=== PATIENT | female | born 1985 | race Caucasian/White ===

== ENCOUNTER 2021-02-25 18:40 | Emergency (ER) | payer OTHER, SELFPAY ==
--- NOTE | ~2021-02-25 | XR_ITS ---
EXAMINATION: XR CHEST CLINICAL INFORMATION: Cough with shortness of breath COMPARISON: 05/29/2018 TECHNIQUE: Frontal view of the chest was obtained. FINDINGS: No significant abnormality is noted involving the heart, lungs, mediastinum, bony thorax or soft tissues. XR/XR chest 1V IMPRESSION: Unremarkable examination.
[2021-02-25 21:16] VITALS: BP 138/96; PULSE 113; RESP 16; TEMP 36.7; O2SAT 95; BMI 52.9
[2021-02-25 21:45] LABS: COVID-19 Test Negative (Negative)
[2021-02-25] MEDS: predniSONE 20 MG TABLET 60 MG PO (22:44)
[2021-02-25] MEDS: Albuterol Sulfate (0.083%) 2.5 MG/3 ML VIAL.NEB INHALE ×2 (22:44→23:18)
--- NOTE | 2021-02-25 22:52 | ED_ITS ---
HPI - URI/Sore Throat General Chief Complaint: Upper Respiratory Symptoms Stated Complaint: Asthma Time Seen by Provider: 02/25/21 22:18 Source: patient Mode of arrival: ambulatory Limitations: no limitations History of Present Illness HPI Narrative: 35 years old female it is here today for shortness of breath. Patient reports that she does have a history of asthma and is on corticosteroids and rescue inhalers. Patient reports that her symptoms started few days ago. Mostly wheezing, some shortness of breath, denies any CP, PND, presyncope or syncope. Patient reports that when she takes her nebulizer treatment she feels well for couple hours and then she starts wheezing again. Patient denies any allergy. No ill contacts. Patient reports that she was vaccine eyes with COVID-19 vaccine Sassor. No fever or chills, no rhinorrhea, no nasal congestion or sinus pain. Related Data Previous Rx's Medication Instructions Recorded albuterol sulfate 90 mcg/actuation 2 inh INHALATION QID PRN #8.5 g 02/25/21 aerosol inhaler prednisone 20 mg tablet 60 mg PO DAILY 5 Days #15 tab 02/25/21 prednisone 20 mg tablet 60 mg PO DAILY 5 Days #15 tab 02/25/21 Allergies Allergy/AdvReac Type Severity Reaction Status Date / Time No Known Allergies Allergy Unverified 03/03/20 19:36 [No Known Allergies*] Review of Systems Review of Systems: Constitutional : No Weight loss, No Fever, No Chills, No Night Sweats, No Fatigue, No Malaise ENT/Mouth : No Hearing loss, No Ear Pain, No Nasal Congestion, No Sinus Pain, No Hoarseness, No sore throat, No Rhinorrhea, No Swallowing Difficulty Eyes: No Eye Pain, No Swelling, No Redness, No Foreign Body, No Discharge, No Vision Changes Cardiovascular : No Chest Pain, SOB, No Dyspnea on Exertion, No Orthopnea, No Edema, No Palpitations Respiratory : No Cough, No Sputum, Wheezing, No Smoke Exposure, No Dyspnea Gastrointestinal : No Nausea, No Vomiting, No Diarrhea, No Constipation, No abdominal Pain, No Hematochezia, No Melena Genitourinary : no irregular bleeding, No Dysuria, No Urinary Frequency, No Hematuria, No Urinary Incontinence, No Urgency, No Flank Pain, No Urinary Flow Changes, No Hesitancy Musculoskeletal : No joint pain, No Myalgias, No Joint Swelling Skin : No Skin Lesions, No rash Neuro : No Weakness, No Numbness, No Paresthesias, No Loss of Consciousness, No Dizziness, No Headache Psych : No Anxiety/Panic, No Depression, No SI/HI/AH/VH, No Social Issues, Heme/Lymph: No Bruising, No Bleeding,No Lymphadenopathy Endocrine : No Polyuria, No Polydipsia, No Temperature Intolerance Yes all other systems are reviewed and are negative PMFSH Social History Social History Advance Directives: No Patient : No Physical Exam Vital Signs: Vital Signs: Last Vital Signs Temp 98.0 F 02/25/21 21:16 Pulse 113 H 02/25/21 23:19 Resp 16 02/25/21 21:16 BP 138/96 H 02/25/21 21:16 Pulse Ox 95 02/25/21 21:16 Body Mass Index 52.9 Const: General: healthy appearing, no acute distress and well developed Nutritional Appearance: well nourished Orientation/consciousness: patient oriented x3 HENMT: Head: Yes normal to inspection, Yes normocephalic and Yes atraumatic Ears: hearing grossly normal bilaterally, external ears normal and TM's normal bilaterally General nose exam: Normal external nose present Face and sinus: Yes normal facial exam Mouth: Normal oral and palatal mucosa present Throat: Yes posterior oropharynx normal Eyes: General: appearance normal, both eyes and all related structures Neck: Neck: Yes normal visual inspection, Yes full ROM and Yes trachea midline Thyroid: Thyroid normal Resp: Effort & Inspection: normal respiratory effort Auscultation: wheezes expiratory wheezes and upper bilaterally Cardio: Rate: regular rate Rhythm: regular rhythm Heart sounds: S1 normal heart sound present and S2 normal heart sound present GI: Inspection: Yes normal to inspection and No distended Palpation (GI): No hepatosplenomegaly present Auscultation: normal bowel sounds Skin: General skin exam: elasticity normal, turgor normal and dry skin Neuro: General: patient oriented x3 Course Course Course Narrative: 35 years old with past medical history of asthma is here today for shortness of breath and wheezing. Patient reports that she has been feeling like this for the last few days. Reports that she had used nebulizer treatment at home and feels well for couple hours and then her symptoms return. Patient denies any cough, subjective fevers, chest pain, shortness of breath, orthopnea. Patient reports that she does have new car make ready mechanic but has not seen him consistently. Reevaluation(s) Reevaluation #1: Respiratory treatment given patient has improvement, however she does have upper inspiratory wheeze. Will order 2nd treatment and will re- evaluate Reevaluation #2: Second treatment helped patient. Lung sounds clear. Will send her home on prednisone for the next 5 days. Patient will follow-up with new car make ready mechanic. Script for rescue inhaler sent. Respiratory therapist gave patient spacer so she can use it. She is agreeable to go home and follow-up with her PCP and new car make ready mechanic. MDM - URI/Sore Throat Lab Data Labs: Lab Results 02/25/21 Range/Units 21:21 COVID-19 (ERICKA) Negative (Negative) COVID-19 Clin Com See Note Imaging Data Chest x-ray: Radiologist's impression: FINDINGS: No significant abnormality is noted involving the heart, lungs, mediastinum, bony thorax or soft tissues. Discharge Plan Discharge Clinical Impression: Viral infection Asthma with status asthmaticus Qualifiers: Asthma severity: mild Asthma persistence: intermittent Qualified Code(s): J45.22 - Mild intermittent asthma with status asthmaticus Patient Disposition: Home, Self-Care Instructions: Asthma (ED), Bronchospasm (ED) Additional Instructions: You were seen here today for asthma exacerbation. You were given 2 nebulizer treatments and prednisone. Please follow up with new car make ready mechanic in 2-3 days. You will be given script for rescue inhaler prior please use that with spacer given to you in the emergency department. You may return to emergency department if your symptoms will get worse or if you will experience any additional concerning symptoms. Prescriptions: New prednisone 20 mg tablet 60 mg PO DAILY 5 Days Qty: 15 RF: 0 albuterol sulfate 90 mcg/actuation HFA aerosol inhaler 2 inh inhalation QID PRN (Reason: shortness of breath or wheezing) Qty: 8.5 RF: 0 prednisone 20 mg tablet 60 mg PO DAILY 5 Days Qty: 15 RF: 0 Referrals: Rigo Martinez MD [Physician] - 2 days Aleksandra Dudley MD [Primary Care Provider] - 2 days Stand Alone Forms: Work/School Release Interventions: ED Discharge Assessment Last Done: 02/25/21 23:59 Discharge Date/Time: 02/26/21 00:05
[2021-02-25 22:55] VITALS: PULSE 119; O2SAT 95
[2021-02-25 23:19] VITALS: PULSE 113; O2SAT 96
--- NOTE | 2021-02-25 23:58 | PC.NURSE ---
PT HAD RELIEF AFTER BREATHING TREATMENT LS CLEAR.
== END 2021-02-26 00:05 | disposition home or self-care (01) ==
PROVIDERS: Emergency Provider Student in an Organized Health Care Education/Training Program; PCP Internal Medicine
DX: J45.22 Mild intermittent asthma with status asthmaticus (principal); B34.9 Viral infection, unspecified; Z20.822 Contact with and (suspected) exposure to COVID-19
CPT/HCPCS: 36415; 71045; 87635; 94640; 99283; 99284

== ENCOUNTER 2021-03-10 15:16 | Outpatient (REF) | payer OTHER, SELFPAY ==
[2021-03-10 16:03] LABS: MANUAL DIFF FLAG NO
[2021-03-10 16:26] LABS: Basophils Percent Auto 0.6 % (0-2); Eosinophils Absolute Auto 0.4 X10*3/uL (0.0-0.4); Eosinophils Percent Auto 5.9 % (0-4); Hematocrit 40.8 % (37-47); Hemoglobin 13.6 g/dl (12.0-16.0); Imm Gran Abs Auto 0.04 X10*3/uL (0.00-0.03); Imm Gran Pct Auto 0.6 % (0.0-0.4); Lymphocytes Absolute Auto 1.5 X10*3/uL (1.2-4.9); Lymphocytes Percent Auto 20.9 % (20-40); Mean Corpuscular HGB Conc 33.3 g/dl (31.0-35.0); Mean Corpuscular Hemoglobin 29.7 pg (27.0-33.0); Mean Corpuscular Volume 89.1 fL (80-98); Mean Platelet Volume 9.7 fL (9.4-12.3); Monocytes Absolute Auto 0.6 X10*3/uL (0.1-1.2); Monocytes Percent Auto 7.7 % (2-11); Neutrophils Absolute Auto 4.7 X10*3/uL (2.0-8.3); Neutrophils Percent Auto 64.3 % (45-73); Platelet Count 269 X10*3/uL (160-400); Red Blood Count 4.58 X10*6/uL (4.20-5.50); Red Cell Distribution Width 13.3 % (11.0-16.0); White Blood Count 7.3 X10*3/uL (4.8-10.8)
== END 2021-03-10 15:17 | disposition home or self-care (01) ==
LOC: HO.LAB 15:16
PROVIDERS: PCP Internal Medicine; Visit Provider Internal Medicine Pulmonary Disease
DX: R06.00 Dyspnea, unspecified (principal); J45.909 Unspecified asthma, uncomplicated; Z91.09 Other allergy status, other than to drugs and biological substances
CPT/HCPCS: 36415; 85025

== ENCOUNTER 2021-04-03 16:01 | Outpatient (REF) | payer OTHER, SELFPAY ==
--- NOTE | 2021-04-03 17:28 | PFT_ITS ---
INDICATION: Asthma. SPIROMETRY: The FEV1 to FVC 73% with an FEV1 of 2.39 L, which is 85% predicted, and an FVC of 3.27 L, which is 96% predicted. No significant response to bronchodilators noted. Of note, the patient has WOB13-90 of 46% predicted, suggesting evidence of small airways disease. Maximum voluntary ventilation 104% predicted. LUNG VOLUMES: Total lung capacity 114% predicted with residual volume 154% predicted in addition to an expiratory reserve volume of 18% predicted. DIFFUSION CAPACITY: DLCO 124% predicted. COMPARISONS: None. INTERPRETATION: No definitive obstructive nor restrictive ventilatory defects, although does have some slight concavity to the expiratory limb of the flow volume loop suggesting an obstructive physiology. No significant response to bronchodilators noted. The patient does have evidence of small airway disease, which is suspicious for underlying asthma and also related to her elevated BMI. The maximum voluntary ventilation is within normal limits. Lung volumes do demonstrate significant air trapping, which may be due to the small airways disease and there is also significantly decreased expiratory reserve volume secondary to an elevated BMI. Her diffusion capacity is high normal, exogenous exposure to carbon monoxide need to be considered. If asthma is in the differential, methacholine challenge may be helpful in assessing for hyper-reactive airways, otherwise clinical correlation warranted. Rigo Martinez MD MR/MODL / [id number]
== END 2021-04-03 16:02 | disposition home or self-care (01) ==
LOC: HO.RESP 16:01
PROVIDERS: PCP Internal Medicine; Visit Provider Internal Medicine Pulmonary Disease
DX: J45.909 Unspecified asthma, uncomplicated (principal)
CPT/HCPCS: 94060; 94727; 94729

== ENCOUNTER 2021-04-07 12:48 | Outpatient (REF) | payer OTHER, SELFPAY | END 2021-04-07 12:49 | disposition home or self-care (01) | LOC: HO.MDS 12:48 | PROVIDERS: PCP Internal Medicine; Visit Provider Internal Medicine Pulmonary Disease | DX: J45.50 Severe persistent asthma, uncomplicated (principal) | CPT/HCPCS: 96372; J2357 ==

== ENCOUNTER 2021-04-21 13:51 | Outpatient (REF) | payer OTHER, SELFPAY | END 2021-04-21 13:52 | disposition home or self-care (01) | LOC: HO.MDS 13:51 | PROVIDERS: PCP Internal Medicine; Visit Provider Internal Medicine Pulmonary Disease | DX: J45.909 Unspecified asthma, uncomplicated (principal) | CPT/HCPCS: 96372; J2357 ==

== ENCOUNTER 2021-05-05 12:47 | Outpatient (REF) | payer OTHER, SELFPAY | END 2021-05-05 12:48 | disposition home or self-care (01) | LOC: HO.MDS 12:47 | PROVIDERS: PCP Internal Medicine; Visit Provider Internal Medicine Pulmonary Disease | DX: J45.50 Severe persistent asthma, uncomplicated (principal) | CPT/HCPCS: 96372; J2357 ==

== ENCOUNTER 2021-05-09 00:17 | Emergency (ER) | payer OTHER, SELFPAY ==
--- NOTE | ~2021-05-09 | XR_ITS ---
EXAMINATION: XR CHEST CLINICAL INFORMATION: Shortness of breath COMPARISON: 02/25/2021 TECHNIQUE: 2 views of the chest were obtained. FINDINGS: No significant abnormality is noted involving the heart, lungs, mediastinum, bony thorax or soft tissues. XR/XR chest 2V IMPRESSION: Unremarkable examination.
[2021-05-09 00:40] VITALS: BP 135/92; PULSE 114; RESP 18; TEMP 36.4; O2SAT 95; BMI 51.2
[2021-05-09 01:51] LABS: MANUAL DIFF FLAG NO
[2021-05-09 01:53] LABS: Basophils Absolute Auto 0.1 X10*3/uL (0.0-0.2); Basophils Percent Auto 0.9 % (0-2); Eosinophils Percent Auto 16.9 % (0-4); Hematocrit 39.8 % (37.0-47.0); Hemoglobin 13.4 g/dl (12.0-16.0); Imm Gran Abs Auto 0.03 X10*3/uL (0.00-0.03); Imm Gran Pct Auto 0.5 % (0.0-0.4); Lymphocytes Absolute Auto 1.5 X10*3/uL (1.2-4.9); Mean Corpuscular HGB Conc 33.7 g/dl (31.0-35.0); Mean Corpuscular Volume 92.1 fL (80.0-98.0); Mean Platelet Volume 9.1 fL (9.4-12.3); Monocytes Absolute Auto 0.6 X10*3/uL (0.1-1.2); Monocytes Percent Auto 10.4 % (2-11); Neutrophils Absolute Auto 2.5 x10*3/uL (2.0-8.3); Neutrophils Percent Auto 44.3 % (45-73); Platelet Count 254 X10*3/uL (160-400); Red Blood Count 4.32 X10*6/uL (4.20-5.50); White Blood Count 5.7 X10*3/uL (4.8-10.8)
--- NOTE | 2021-05-09 02:01 | ED.SOB ---
HPI - SOB/Dyspnea General Chief Complaint: Dyspnea Stated Complaint: Difficulty Breathing Time Seen by Provider: 05/09/21 02:00 Source: patient Mode of arrival: ambulatory Limitations: no limitations History of Present Illness HPI Narrative: 36-year-old female with history of asthma came in for evaluation of increased wheezing and asthma exacerbation. Symptoms started 2 days ago, patient's daughter have cold symptoms, patient declined any fever chills, patient also declined any recent travel, no lower extremity swelling or tenderness, No history of prolonged immobilization. no history of PE or DVT. Related Data Previous Rx's Medication Instructions Recorded albuterol sulfate 90 mcg/actuation 2 inh INHALATION QID PRN #8.5 g 02/25/21 aerosol inhaler prednisone 10 mg tablet See Rx Instructions PO DAILY 20 03/10/21 Days #50 tab omalizumab 150 mg subcutaneous 225 mg SUBCUT Q2W 28 Days #4 ea 03/23/21 solution (Xolair) epinephrine 0.3 mg/0.3 mL 0.3 mg (0.3 mL) IM Q10M PRN 30 04/19/21 injection, auto-injector (EpiPen) Days #2 ea albuterol sulfate 90 mcg/actuation 1 inh INHALATION QID PRN #6.7 g 05/09/21 aerosol inhaler prednisone 20 mg tablet 20 mg PO BID #8 tab 05/09/21 Allergies Allergy/AdvReac Type Severity Reaction Status Date / Time No Known Allergies Allergy Verified 03/10/21 15:21 [No Known Allergies*] Review of Systems Review of Systems: All other systems are reviewed and are negative Constitutional: Reports as per HPI and Reports no additional constitutional complaints Eyes: Reports as per HPI and Reports no additional eye complaints Reports system reviewed and no additional complaints, except as documented Cardiovascular: Reports as per HPI and Reports no additional cardiovascular complaints Respiratory: Reports as per HPI and Reports no additional respiratory complaints Gastrointestinal: Reports as per HPI and Reports no additional gastrointestinal complaints Genitourinary: Reports no additional female genitourinary complaints Musculoskeletal: Reports no additional musculoskeletal complaints Skin/Breast: Reports system reviewed and no additional complaints, except as docu Psychiatric: Reports no additional psychiatric complaints Endocrine: Reports no additional endocrine complaints Hematologic/Lymphatic: Reports no additional hematologic/lymphatic complaints Allergic/Immunologic: Reports no additional allergic/immunologic complaints Reports system reviewed and no additional complaints, except as documented and Reports Abnormal speech present [facility] Past Medical History Medical History No known health problems Social History Social History Advance Directives: No Patient : No Physical Exam Vital Signs: Vital Signs: Last Vital Signs Temp 97.6 F 05/09/21 00:40 Pulse 122 H 05/09/21 03:51 Resp 20 05/09/21 03:51 BP 154/77 H 05/09/21 03:51 Pulse Ox 98 05/09/21 03:51 Body Mass Index 51.2 vital signs have been reviewed as appeared to be correct. Blood pressure normal. Heart rate Elevated. Respiration rate normal. Temperature normal. Oxygen saturation normal. Appearance: Alert. Oriented X3. No acute distress. Head: Normal external exam. Normocephalic. Atraumatic. No Mejia signs noted. No raccoon eyes noted Eyes: PERRLA. EOMI. Conjunctiva and sclera normal. Eyelids normal. ENT: TM's Normal. Pharynx normal. Uvula midline. Moist mucous membranes. No trismus noted. No drooling noted. No muffled voice noted. Neck: Normal inspection. Neck supple. FROM. No adenopathy. Thyroid Normal. No meningeal signs. No neck mass noted. CVS: Normal heart rate and rhythm. Heart sound normal. No murmurs noted. Pulses normal throughout. Respiratory: No respiratory distress. Painless inspiration. Breath sounds normal. bilateral diffuse expiratory wheezing, with prolonged expiration. Chest nontender. No accessory muscle usage noted or decreased air movement noted. Abdomen: Soft and nontender. Bowel sounds normal in all 4 quadrants. No distention noted. No organomegaly noted. No visible injury noted. Back: No CVA tenderness. Full range of motion noted. Skin: Skin warm and dry. Normal skin color. Normal skin turgor. No rashes/lesions/lacerations noted. Extremities: No lower extremity edema. Extremities exhibit normal range of motion. Extremities nontender. Neuro: Oriented X 3. Cranial nerve exam: II-XII are grossly intact No motor deficit. No sensory deficit. Reflexes normal. Course Course Course Narrative: assessment and plan. 36-year-old female known history of asthma came in for asthma exacerbation for the past couple days, patient received bronchodilator and prednisone in the emergency department felt better, will discharge the patient on couple days of prednisone and bronchodilator. Patient had a random elevated blood glucose but no history of diagnosed diabetes. Patient was instructed to follow-up with her primary doctor to get workup for diabetes diagnosis. MDM - SOB/Dyspnea Lab Data Attestation: I reviewed the patient's lab results. Result diagrams: 05/09/21 01:48 05/09/21 01:48 Labs: Lab Results 05/09/21 05/09/21 05/09/21 Range/Units 01:48 01:48 02:10 WBC 5.7 (4.8-10.8) X10*3/uL RBC 4.32 (4.20-5.50) X10*6/uL Hgb 13.4 (12.0-16.0) g/dl Hct 39.8 (37.0-47.0) % MCV 92.1 (80.0-98.0) fL MCH 31.0 (27.0-33.0) pg MCHC 33.7 (31.0-35.0) g/dl RDW 13.0 (11.0-16.0) % Plt Count 254 (160-400) X10*3/uL MPV 9.1 L (9.4-12.3) fL Immature Gran % (Auto) 0.5 H (0.0-0.4) % Neut % (Auto) 44.3 L (45-73) % Lymph % (Auto) 27.0 (20-40) % [place] % (Auto) 10.4 (2-11) % Eos % (Auto) 16.9 H (0-4) % Baso % (Auto) 0.9 (0-2) % Lymph # (Auto) 1.5 (1.2-4.9) X10*3/uL [place] # (Auto) 0.6 (0.1-1.2) X10*3/uL Eos # (Auto) 1.0 H (0.0-0.4) X10*3/uL Baso # (Auto) 0.1 (0.0-0.2) X10*3/uL Abs Immat Gran (auto) 0.03 (0.00-0.03) X10*3/uL Absolute Neuts (auto) 2.5 (2.0-8.3) x10*3/uL Absolute Nucleated RBC 0.000 (0.0-0.012) X10*3/uL Nucleated RBC % (auto) 0.0 (0.0-0.2) /100WBC Sodium 139 (135-145) mmol/L Potassium 4.1 (3.3-5.1) mmol/L Chloride 104 (96-108) mmol/L Carbon Dioxide 24 (22-29) mmol/L Anion Gap 15 (12-20) BUN 12 (9-16) mg/dL Creatinine 0.84 (0.5-1.4) mg/dL Estim Creat Clear Calc 112.7 Estimated GFR > 60 Random Glucose 283 H (60-115) mg/dL Calcium 9.8 (8.4-10.2) mg/dL Influenza Type A (PCR) NEGATIVE (Negative) Influenza Type B (PCR) NEGATIVE (Negative) RSV RNA Qual (PCR) NEGATIVE (Negative) SARS-CoV-2 RNA (RT-PCR) NEGATIVE (Negative) Imaging Data Chest x-ray: Radiologist's impression: Unremarkable examination. Discharge Plan Discharge Clinical Impression: Asthma with exacerbation, Hyperglycemia Patient Disposition: Home, Self-Care Instructions: Asthma (ED), Nondiabetic Hyperglycemia (ED) Additional Instructions: follow-up with your primary doctor, your blood sugar found to be high concerning of new onset of diabetes. Prescriptions: New prednisone 20 mg tablet 20 mg PO BID Qty: 8 RF: 0 albuterol sulfate 90 mcg/actuation HFA aerosol inhaler 1 inh inhalation QID PRN (Reason: shortness of breath or wheezing) Qty: 6.7 RF: 0 No Action Xolair 150 mg recon soln 225 mg subcut Q2W 28 Days Qty: 4 RF: 0 epinephrine [EpiPen] 0.3 mg/0.3 mL auto-injector 0.3 mg IM Q10M PRN (Reason: anaphylaxis) 30 Days Qty: 2 RF: 0 albuterol sulfate 90 mcg/actuation HFA aerosol inhaler 2 inh inhalation QID PRN (Reason: shortness of breath or wheezing) Qty: 8.5 RF: 0 prednisone 10 mg tablet See Rx Instructions PO DAILY 20 Days Qty: 50 RF: 0 Referrals: Physician,Unknown J [Primary Care Provider] - 2 days
[2021-05-09 02:10] LABS: Anion Gap 15 (12-20); Blood Urea Nitrogen 12 mg/dL (9-16); Calcium 9.8 mg/dL (8.4-10.2); Carbon Dioxide 24 mmol/L (22-29); Chloride 104 mmol/L (96-108); Creatinine Clr Calc Pharmacy 112.7; Estimated Glomerular Filt Rate > 60; Glucose Random 283 mg/dL (60-115); Potassium 4.1 mmol/L (3.3-5.1); Sodium 139 mmol/L (135-145)
[2021-05-09] MEDS: predniSONE 20 MG TABLET 40 MG PO (02:16)
[2021-05-09] MEDS: Albuterol Sulfate (0.083%) 2.5 MG/3 ML VIAL.NEB 5 MG INHALE (02:29)
[2021-05-09 02:30] VITALS: PULSE 102; O2SAT 96
[2021-05-09] MEDS: Albuterol/Iprat 2.5/0.5MG 3 ML AMPUL.NEB INHALE (02:30)
[2021-05-09 02:54] LABS: Influenza A PCR NEGATIVE (Negative); Influenza B PCR NEGATIVE (Negative); Resp Syncy Virus RNA Qual PCR NEGATIVE (Negative); SARS COV2 PCR INHOUSE NEGATIVE (Negative)
[2021-05-09 03:51] VITALS: BP 154/77; PULSE 122; RESP 20; O2SAT 98
== END 2021-05-09 04:23 | disposition home or self-care (01) ==
PROVIDERS: Emergency Provider Emergency Medicine
DX: R06.00 Dyspnea, unspecified (principal); R73.9 Hyperglycemia, unspecified; J45.909 Unspecified asthma, uncomplicated; Z79.899 Other long term (current) drug therapy; Z20.822 Contact with and (suspected) exposure to COVID-19
CPT/HCPCS: 0241U; 36415; 71046; 80048; 85025; 94640; 94644; 99284

== ENCOUNTER → 2021-06-02 13:33 | Outpatient (REF) | payer OTHER, SELFPAY ==
--- NOTE | 2021-06-02 14:32 | CA_ITS ---
Transthoracic Echocardiogram Patient (Last, First, Middle): Dilcia Batres, Gender: Female Date of : 1985 Age: 36 Procedure Date: 06/02/2021 Procedure Type: Transthoracic Echocardiogram Location: OP Height: 154.94 cm Weight: 124.74 kg BSA: 2.16 m2 Heart Rate: bpm BP: 128 / 80 mmHg Slitting Machine Operator: Referring MD: Ahsan Dawson MD Supervisor Dried Yeast: Monty Drew MD Symptoms: R06.00 - Dyspnea, unspecified Study Quality: Fair ECG Rhythm: Sinus Conclusions: - Essentially normal study Findings Left Ventricle Normal left ventricular size, thickness, and systolic function. The visually estimated ejection fraction is between 60-65%. Diastolic function is normal for age. Right Ventricle Normal right ventricular cavity size and systolic function. Atria Both atria are normal in size. There is lipomatous hypertrophy of the interatrial septum. There is a mobile atrial septum noted. There is no evidence of interatrial shunt. Aortic Valve The aortic valve structure and function is likely normal. There is no aortic valve stenosis. There is no aortic valve regurgitation. Mitral Valve Normal mitral valve structure and function. There is trace mitral valve regurgitation. There is no mitral valve stenosis. Pulmonic Valve The pulmonic valve was not well visualized. Tricuspid Valve Likely normal tricuspid valve structure and function. There is trace tricuspid valve regurgitation. The right ventricular systolic pressure is normal. The right ventricular systolic pressure is 17 mmHg. Normal right atrial pressure. There is no evidence of pulmonary hypertension. Great Vessels All visible segments of the aorta are normal in size. The pulmonary artery was not well visualized. Venous The inferior vena cava is normal in size and collapses greater than 50% with inspiration. Pericardium/Pleural There is no evidence of pericardial effusion. Prior Study Comparison No prior study available for comparison. Measurements 2D Linear Measurements IVSd: 1.04 0.6-0.9/0.6-1.0 cm LVIDd: 3.70 3.9-5.3/4.2-5.9 cm LVIDd Index: 1.71 2.4-3.2/2.2-3.1 cm/m2 LVIDs: 2.39 2.0-3.6 cm LVPWd: 0.90 0.7-1.1 cm Ao Root: 2.80 2.1-3.5 cm LA Diam: 3.90 2.7-3.8/3.0-4.0 cm LAIDs Index: 1.81 1.5-2.3 cm/m2 LV Mass: 212.35 67-162/88-224 g LV Mass Index: 98.31 43-95/49-115 g/m2 LVOT Diam: 2.20 3.0+(-)1.3 cm 2D Systolic Function EF 4C: 58.20 >55% EF 2C: 56.30 >55% Mitral Valve MV Pk E: 1.01 MV PK A: 0.85 MV Decel Time: 133.00 E/A: 1.20 E'Lateral: 9.36 E'Medial: 9.46 E/E' Med: 10.70 E/E' Lat: 10.80 PHT: 39.00 MVA PHT: 5.64 Decel Barnes: 7.58 Aortic Valve AoV Pk David: 1.29 AoV Mn David: 0.85 AoV VTI: 0.28 AoV Pk Grad: 7.00 Aov Mn Grad: 3.00 LIZANDRO Cont.VTI: 3.87 LVOT LVOT Pk David: 1.26 LVOT Mn David: 0.79 LVOT VTI: 0.28 LVOT Pk Grad: 6.00 LVOT Mn Grad: 3.00 LVOT Diam: 2.20 LVOT Area: 3.80 Diastolic Function MV Pk E: 1.01 MV Pk A: 0.85 E/A: 1.20 E'Medial: 9.46 E/E' Med: 10.70 E' Laterial: 9.36 E/E' Lat: 10.80 Tricuspid Valve TR Pk David: 1.89 TR Pk Grad: 14.00 RA Press: 3.00 RVSP: 17.00 Great Vessels Aorta Ao Root-2D: 2.80 2.0-3.7 cm Ao Asc: 2.80 2.1-3.4 cm Pulmonary Valve PV Pk David: 1.09 Peak PV Grad: 5.00 Updated in Other Vendor System with Status of Final Monty Drew MD electronically signed on 06/03/2021 11:17:25 AM with status of Final
== END ==
LOC: HO.CARD 13:33
PROVIDERS: Visit Provider Internal Medicine Pulmonary Disease
DX: R06.00 Dyspnea, unspecified (principal)
CPT/HCPCS: 93306

== ENCOUNTER → 2021-06-20 14:19 | Outpatient (BNVA) | payer OTHER, SELFPAY | PROVIDERS: PCP Internal Medicine; Visit Provider Internal Medicine Pulmonary Disease ==

== ENCOUNTER → 2021-07-18 14:23 | Outpatient (BNVA) | payer OTHER, SELFPAY | PROVIDERS: PCP Internal Medicine; Visit Provider Internal Medicine Pulmonary Disease ==

== ENCOUNTER → 2021-08-09 14:41 | Outpatient (BNVA) | payer OTHER, SELFPAY | PROVIDERS: PCP Internal Medicine; Visit Provider Internal Medicine Pulmonary Disease ==

== ENCOUNTER → 2021-09-01 13:27 | Outpatient (BNVA) | payer OTHER, SELFPAY | PROVIDERS: PCP Internal Medicine; Visit Provider Internal Medicine Pulmonary Disease | DX: Z13.89 Encounter for screening for other disorder (principal) ==

== ENCOUNTER 2022-05-08 14:07 | Outpatient (REF) | payer OTHER, SELFPAY ==
--- NOTE | ~2022-05-08 | XR_ITS ---
EXAMINATION: XR CHEST CLINICAL INFORMATION: Acute bronchitis COMPARISON: Previous chest x-ray April 2021 TECHNIQUE: 2 views of the chest were obtained. FINDINGS: No significant abnormality is noted involving the heart, lungs, mediastinum, bony thorax or soft tissues. There are degenerative changes of the spine. XR/XR chest 2V IMPRESSION: No evidence for acute disease in chest.
== END 2022-05-08 14:08 | disposition home or self-care (01) ==
LOC: HO.HMGCLDS 14:07
PROVIDERS: Visit Provider Internal Medicine
DX: Z20.822 Contact with and (suspected) exposure to COVID-19 (principal); J20.9 Acute bronchitis, unspecified
CPT/HCPCS: 71046

== ENCOUNTER → 2022-08-02 15:21 | Outpatient (BNVA) | payer OTHER, SELFPAY | PROVIDERS: PCP Internal Medicine; Visit Provider Internal Medicine Pulmonary Disease | DX: Z13.89 Encounter for screening for other disorder (principal) ==

== ENCOUNTER 2023-02-06 15:30 | Outpatient (AMB) | payer OTHER, SELFPAY ==
--- NOTE | 2023-02-06 15:33 | A.OFFVIS_ITS ---
Intake Vital Signs 02/06/23 15:34 Height 5 ft 1 in Weight 275 lb 9.245 oz BMI 52.1 BP 126/79 Blood Pressure Location Lt brachial Position Sitting Pulse 90 Pulse Source Pulse Oximeter Pulse Oximetry (%) 97 Oxygen Delivery Method Room Air Intake Visit Reasons: Asthma Allergies No Known Allergies [No Known Allergies*] Allergy (Verified 02/06/23 15:35) HPI Asthma HPI Details 37-year-old lady with underlying history of asthma since childhood, followed for severe persistent allergic asthma.? She has been using Fasenra, theophylline, Trelegy, and albuterol MDI with good control of her underlying symptoms.? Patient denies any recent exacerbations. She rarely requires to use her albuterol MDI. [facility] Medical History No known health problems Review of Systems Const Denies daytime sleepiness, Denies excessive sweating, Denies fatigue, Denies fever(s), Denies lethargy, Denies malaise, Denies night sweats, Denies snoring and Denies weight loss Eyes Denies blurry vision and Denies itchy eyes ENT Denies nasal congestion, Denies post nasal drip, Denies sinus pain, Denies sinus pressure and Denies other ( Thrush) Card Denies chest pain, Denies pedal edema, Denies dyspnea, Denies orthopnea and Denies paroxysmal nocturnal dyspnea Resp Denies cough, Denies hemoptysis, Denies excessive phlegm production, Denies dyspnea, Denies snoring and Denies wheezing GI Denies abdominal pain and Denies heartburn Musc Denies myalgias, Denies arthralgias and Denies joint swelling Skin/Breast Denies rash Neuro Denies memory loss and Denies seizure-like activity Psych Denies abnormal sleep pattern, Denies anxiety and Denies memory loss Endo Denies excessive sweating, Denies fatigue and Denies heat intolerance Tristen/Lymph Denies easy bruising Aller/Immun Denies itchy eyes, Denies seasonal rhinorrhea and Denies wheezing Physical Exam Vital Signs: Last Vital Signs Pulse 90 02/06/23 15:34 BP 126/79 02/06/23 15:34 Pulse Ox 97 02/06/23 15:34 Oxygen Delivery Method Room Air 02/06/23 15:34 BMI result Body Mass Index 52.1 Const General: no acute distress and alert Nutritional Appearance: obese Orientation/consciousness: Other orientation findings ( oriented) HEENT Head: Yes atraumatic Eyes General: appearance normal, both eyes and all related structures Sclerae: sclerae normal EOM: EOMs intact bilaterally Neck Neck: Yes supple Lymphatic: no lymphadenopathy noted Resp Effort & Inspection: normal respiratory effort and no use of accessory muscles Auscultation: clear to auscultation bilaterally Cardio Rate: regular rate Rhythm: regular rhythm Heart sounds: no gallops, no murmurs and no rubs Skin General skin exam: other ( warm) Extrem General: No clubbing, No cyanosis and No edema Assessment & Plan Assessment & Plan (1) Asthma: Code(s): J45.909 - Unspecified asthma, uncomplicated Plan: Well controlled on current regimen of Fasenra, Trelegy, and albuterol MDI/nebs. Continue current regimen. (2) Environmental allergies: Code(s): Z91.09 - Other allergy status, other than to drugs and biological substances Plan: Well controlled on Fasenra. Continue current regimen. Coding Level of Care Code Est Pt Level 4 (68250) Diagnoses Asthma J45.909 Environmental allergies Z91.09
[2023-02-06 15:34] VITALS: BP 126/79; PULSE 90; O2SAT 97; BMI 52.1
== END 2023-02-06 15:41 | disposition home or self-care (01) ==
PROVIDERS: PCP Internal Medicine; Visit Provider Internal Medicine Pulmonary Disease
DX: J45.909 Unspecified asthma, uncomplicated (principal); Z91.09 Other allergy status, other than to drugs and biological substances
CPT/HCPCS: 99214

== ENCOUNTER → 2023-02-06 15:30 | Outpatient (BNVA) | payer OTHER, SELFPAY | PROVIDERS: PCP Internal Medicine; Visit Provider Internal Medicine Pulmonary Disease ==

== ENCOUNTER 2024-02-02 23:39 | Emergency (ER) | payer OTHER, SELFPAY ==
[2024-02-02 23:42] VITALS: BP 136/77; PULSE 115; RESP 14; TEMP 36.1; O2SAT 96; BMI 53.3
--- NOTE | 2024-02-03 00:31 | ED.GENADULT ---
HPI - General Adult General Chief complaint: Headache Stated complaint: +covid Time Seen by Provider: 02/03/24 00:24 Source: patient Mode of arrival: ambulatory Limitations: no limitations History of Present Illness ED Provider: fracisco ASHLEY narrative: Patient's history of asthma been having body aches nasal congestion chills no cough since yesterday tested herself at home for COVID which was positive no other family member sick denies any shortness of breath saturating 96% at room air on arrival Related Data Previous Rx's ?Medication ?Instructions ?Recorded epinephrine 0.3 mg/0.3 mL 0.3 mg (0.3 mL) IM Q10M PRN 04/19/21 injection, auto-injector (EpiPen) anaphylaxis 30 days #2 ea albuterol sulfate 2.5 mg/3 mL 2.5 mg (3 mL) inhalation QID PRN 08/02/22 (0.083 %) solution for nebulization shortness of breath or wheezing 30 days #90 mL albuterol sulfate 90 mcg/actuation 2 puff inhalation QID PRN for 05/03/23 aerosol inhaler wheezing #1 ea benralizumab 30 mg/mL subcutaneous 30 mg subcut Q8W 28 days #1 mL 07/30/23 auto-injector (Fasenra Pen) theophylline 400 mg 400 mg PO DAILY #90 tabs 08/13/23 tablet,extended release 24 hr Trelegy Ellipta 200 mcg-62.5 1 inh inhalation DAILY 90 days #3 12/27/23 mcg-25 mcg powder for inhalation inhalers ([id number]) Allergies Allergy/AdvReac Type Severity Reaction Status Date / Time No Known Allergies Allergy Verified 02/02/24 23:44 [No Known Allergies*] Review of Systems Review of Systems: Yes all other systems are reviewed and are negative PMFSH Past Medical History Medical History No known health problems Social History Social History Smoked in Last 30 Days: No Advance Directives: No Advance Directives Information Provided: Yes Do you have a plan to hurt others: No Plan Patient : No Physical Exam ED Vital Signs: Vital Signs - 24 hr 02/02/24 23:42 02/03/24 02:11 Temperature 97.0 F 98.9 F Pulse Rate 115 H 102 H Respiratory Rate 14 18 Blood Pressure 136/77 124/78 Pulse Oximetry 96 99 Oxygen Delivery Method Room Air BMI result Body Mass Index 53.3 Appearance: Alert. Oriented X3. No acute distress. Eyes: No pallor or icterus ENT: Pharynx normal. Oral Mucosa moist Neck: Normal inspection. Neck supple. CVS: Normal heart rate and rhythm. Pulses normal. Respiratory: No respiratory distress. Equal air entry bilateral, no wheezing/rales/rhonchi Abdomen: Soft and nontender. Bowel sounds are present, no mass palpable, no CVA tenderness Skin: Skin warm and dry. Normal skin color. Normal skin turgor. Extremities: No lower extremity edema. No calf tenderness Neuro: Oriented X 3. No motor deficit. No sensory deficit.No cerebellar signs , cranial nerves II-XII intact Medical Decision Making Medical Decision Making MDM Narrative: Patient is COVID positive saturating 99% at room air advised to follow with PCP report to ER if any significant shortness of breath Lab Data MDM Lab Attestation statement: I reviewed the patient's lab results. Labs: Lab Results 02/03/24 Range/Units 00:17 COVID-19 (ERICKA) Positive A (Negative) COVID-19 Clin Com See Note Influenza Type A (ELIZABETH) Negative (Negative) Influenza Type B (ELIZABETH) Negative (Negative) Influenza A & B Note See Note Discharge Plan Discharge Clinical Impression: COVID-19 Patient Disposition: Home, Self-Care Instructions: COVID-19 (Coronavirus Disease 2019) (ED) Additional Instructions: Social distancing as advised Tylenol/Motrin for fever / body aches Continue nebulizer treatment as needed for wheezing Report to the ER if increased shortness of breath Prescriptions: No Action epinephrine [EpiPen] 0.3 mg/0.3 mL auto-injector 0.3 mg IM Q10M PRN (Reason: anaphylaxis) 30 Days Qty: 2 0RF Rx Instructions: for 2 doses albuterol sulfate 90 mcg/actuation HFA aerosol inhaler 2 puff inhalation QID PRN (Reason: for wheezing) Qty: 1 0RF Fasenra Pen 30 mg/mL auto-injector 30 mg subcut Q8W 28 Days Qty: 1 12RF theophylline 400 mg tablet extended release 24 hr 400 mg PO DAILY Qty: 90 1RF Trelegy Ellipta 200-62.5-25 mcg blister with device 1 inh inhalation DAILY 90 Days Qty: 3 0RF Rx Instructions: *PLEASE CALL THE OFFICE TO SCHEDULE A FOLLOW UP APPT. FOR FUTURE REFILLS. albuterol sulfate 2.5 mg /3 mL (0.083 %) solution for nebulization 2.5 mg inhalation QID PRN (Reason: shortness of breath or wheezing) 30 Days Qty: 90 6RF Interventions: ED Discharge Assessment Last Done: 02/03/24 02:11 Discharge Date/Time: 02/03/24 02:19 Print Language: [place] Citizen
[2024-02-03 00:45] LABS: COVID-19 Test Positive (Negative); IDNOW Serial# 08D9AD1C; IDNOW Serial# 152EDE1D; Influenza A Negative (Negative); Influenza B2 Negative (Negative)
[2024-02-03 02:11] VITALS: BP 124/78; PULSE 102; RESP 18; TEMP 37.2; O2SAT 99
== END 2024-02-03 02:19 | disposition home or self-care (01) ==
PROVIDERS: Emergency Provider Internal Medicine; PCP Internal Medicine
DX: U07.1 COVID-19 (principal)
CPT/HCPCS: 87502; 87635; 99283; 99284

== ENCOUNTER 2024-03-05 15:40 | Outpatient (AMB) | payer OTHER, SELFPAY ==
[2024-03-05 15:41] VITALS: BP 122/78; PULSE 88; O2SAT 98; BMI 53.5
--- NOTE | 2024-03-05 15:41 | A.OFFVIS_ITS ---
Vital Signs 03/05/24 15:41 Height 5 ft 1 in Weight 283 lb 4.704 oz BMI 53.5 BP 122/78 Blood Pressure Location Rt brachial Position Sitting Pulse 88 Pulse Source Doppler Pulse Oximetry (%) 98 Oxygen Delivery Method Room Air Intake Visit Reasons: Asthma Allergies No Known Allergies [No Known Allergies*] Allergy (Verified 02/02/24 23:44) HPI HPI Asthma: Details: 38-year-old lady with underlying history of asthma since childhood, followed for severe persistent allergic asthma.? She has been using Fasenra, theophylline, Trelegy, and albuterol MDI with good control of her underlying symptoms.? Patient denies any recent exacerbations. [facility] Medical History No known health problems Review of Systems Const Denies daytime sleepiness, Denies excessive sweating, Denies fatigue, Denies fever(s), Denies lethargy, Denies malaise, Denies night sweats, Denies snoring and Denies weight loss Eyes Denies blurry vision and Denies itchy eyes ENT Denies nasal congestion, Denies post nasal drip, Denies sinus pain, Denies sinus pressure and Denies other ( Thrush) Card Denies chest pain, Denies pedal edema, Denies dyspnea, Denies orthopnea and Denies paroxysmal nocturnal dyspnea Resp Denies cough, Denies hemoptysis, Denies excessive phlegm production, Denies dyspnea, Denies snoring and Denies wheezing GI Denies abdominal pain and Denies heartburn Musc Denies myalgias, Denies arthralgias and Denies joint swelling Skin/Breast Denies rash Neuro Denies memory loss and Denies seizure-like activity Psych Denies abnormal sleep pattern, Denies anxiety and Denies memory loss Endo Denies excessive sweating, Denies fatigue and Denies heat intolerance Tristen/Lymph Denies easy bruising Aller/Immun Denies itchy eyes, Denies seasonal rhinorrhea and Denies wheezing Physical Exam Vital Signs: Last Vital Signs Pulse 88 03/05/24 15:41 BP 122/78 03/05/24 15:41 Pulse Ox 98 03/05/24 15:41 Oxygen Delivery Method Room Air 03/05/24 15:41 BMI result Body Mass Index 53.5 Const General: no acute distress and alert Nutritional Appearance: obese Orientation/consciousness: Other orientation findings ( oriented) HEENT Head: Yes atraumatic Eyes General: appearance normal, both eyes and all related structures Sclerae: sclerae normal EOM: EOMs intact bilaterally Neck Neck: Yes supple Lymphatic: no lymphadenopathy noted Resp Effort & Inspection: normal respiratory effort and no use of accessory muscles Auscultation: clear to auscultation bilaterally Cardio Rate: regular rate Rhythm: regular rhythm Heart sounds: no gallops, no murmurs and no rubs Skin General skin exam: other ( warm) Extrem General: No clubbing, No cyanosis and No edema Assessment & Plan Assessment & Plan (1) Asthma: Code(s): J45.909 - Unspecified asthma, uncomplicated Category: Medical Plan: Well controlled on current regimen of Fasenra, Trelegy, theophylline, and albuterol MDI/nebs. Continue current regimen. (2) Environmental allergies: Code(s): Z91.09 - Other allergy status, other than to drugs and biological substances Category: Medical Plan: Well controlled on Fasenra. Continue current regimen. Coding Level of Care Code Est Pt Level 4 (34660) Diagnoses Asthma J45.909 Environmental allergies Z91.09
== END 2024-03-05 15:53 | disposition home or self-care (01) ==
PROVIDERS: PCP Internal Medicine; Visit Provider Internal Medicine Pulmonary Disease
DX: J45.909 Unspecified asthma, uncomplicated (principal); Z91.09 Other allergy status, other than to drugs and biological substances
CPT/HCPCS: 99214

== ENCOUNTER → 2024-03-05 15:40 | Outpatient (BNVA) | payer OTHER, SELFPAY | PROVIDERS: PCP Internal Medicine; Visit Provider Internal Medicine Pulmonary Disease ==